=== PATIENT | female | born 1940 | race Caucasian/White ===

== ENCOUNTER 2020-12-17 06:20 | Emergency (ER) | payer OTHER ==
[~2020-12-17] VITALS: Ht 152.4 cm; Wt 47.6 kg
--- NOTE | 2020-12-17 06:20 | NUR ---
PT DANIEL BLS. TAKEN TO BED 7
--- NOTE | 2020-12-17 06:25 | NUR ---
BIBA DUE TO LOWER BACK PAIN. PT IS A&OX4, AMBULATORY. PT STATED THAT SHE COULDN'T GET UP BECAUSE OF BACK PAIN. 8/10 SHARP PAIN X 2 DAYS. PMH: HYPERTENSIPN, HYPERLIPIDEMIA, OSTEOPOROSIS ALLERGIES: PENICILLIN
--- NOTE | 2020-12-17 06:27 | NUR ---
DR WHALEN AT BEDSIDE EXAMINING PT
[2020-12-17 06:31] VITALS: BP 148/70
[2020-12-17] MEDS ORDERED: HYDROcodone/APAP 5/325 MG 1 TAB TAB PO STA (06:32)
[2020-12-17] MEDS ORDERED: DEXAMETHASONE 4 MG/ML VIAL PO STA (06:32)
[2020-12-17] MEDS ORDERED: methocarbamoL 500 MG TAB PO STA (06:32)
[2020-12-17] MEDS ORDERED: ACET-2619 PO (06:42)
[2020-12-17] MEDS ORDERED: METH-1681 PO (06:42)
[2020-12-17] MEDS ORDERED: PRED20TA6 PO (06:42)
--- NOTE | 2020-12-17 07:14 | NUR ---
GIVEN REPORT TO MENA SALAS FOR CONTINUITY OF CARE
--- NOTE | 2020-12-17 07:31 | NUR ---
PT AMBULATED TO BATHROOM WITH EVEN AND STEADY GAIT, ERMD MADE AWARE
--- NOTE | 2020-12-17 08:30 | NUR ---
Patient discharged with v/s stable. Written and verbal after care instructions about sciatica given and explained. Patient alert, oriented and verbalized understanding of instructions. Ambulatory with steady gait. All questions addressed prior to discharge. ID band removed. Patient advised to follow up with PMD. Rx of tylenol, robaxin, prednisone given. Patient educated on indication of medication including possible reaction and side effects. Opportunity to ask questions provided and answered. Pt to be picked up by friend.
[2020-12-17 08:39] VITALS: BP 140/67
== END 2020-12-17 08:30 | disposition home or self-care (01) ==
LOC: MED 06:20
DX: M54.5 Low back pain (principal); E11.9 Type 2 diabetes mellitus without complications; I10 Essential (primary) hypertension
CPT/HCPCS: 99284; J1100